=== PATIENT | male | born 1990 ===

== ENCOUNTER → 2020-04-26 | Outpatient (CLI) | payer OTHER | END | disposition home or self-care (01) | LOC: MRI 12:09 | PROVIDERS: ATTEND Neurological Surgery | DX: M51.35 Other intervertebral disc degeneration, thoracolumbar region (principal) | CPT/HCPCS: 72141; 72148 ==

== ENCOUNTER 2024-02-16 13:13 | Outpatient (CLI) | payer OTHER | END 2024-02-16 13:20 | disposition home or self-care (01) | LOC: MRI 13:13 | PROVIDERS: ATTEND Orthopaedic Surgery Orthopaedic Surgery of the Spine | DX: H57.10 Ocular pain, unspecified eye (principal); I63.50 Cerebral infarction due to unspecified occlusion or stenosis of unspecified cerebral artery | CPT/HCPCS: 70544; 70551 ==